=== PATIENT | male | born 1970 | race African-American/Black ===

== ENCOUNTER 2017-11-16 13:57 | Emergency (ER) | payer SELFPAY ==
[2017-11-16] MEDS ORDERED: Lidocaine 1% PF 5 ML VIAL ONE (16:03)
[2017-11-16] MEDS ORDERED: cefTRIAXone\\ROCEPHIN 500 MG VIAL ONE (16:03)
== END 2017-11-16 16:55 | disposition home or self-care (01) ==
LOC: ERS 13:57
DX: H00.033 Abscess of eyelid right eye, unspecified eyelid (principal); Z87.891 Personal history of nicotine dependence
CPT/HCPCS: 96372; J0696; J2001